=== PATIENT | female | born 2000 | race Caucasian/White ===

== ENCOUNTER 2020-08-16 12:50 | Emergency (ER) | payer OTHER ==
[~2020-08-16 12:50] MED LIST: IMITREX50 MG PO; LEVONOR-ETH ES1 EAC1 PO; NORCO 5-325 TA1 EACH PO; ONDANSETRON ODT8 MG PO; WELLBUTRIN SR150 MG PO
[2020-08-16 13:43] LABS: BASOPHIL 1.3 % (0-2); HCT 44.1 % (37.0-47.0); HGB 14.4 g/dl (12.5-16.0); LYMPHOCYTE 31.7 % (15-48); MCH 30.4 pg (25.0-31.0); MCHC 32.7 g/dL (32.0-36.0); MONOCYTE 4.7 % (0-12); MPV 10.4 fL (6.0-9.5); NEUTROPHIL 61.1 % (41-80); NRBC 0; PLT 280 K/uL (150-400); RBC 4.74 M/uL (4.20-5.40); RDW 12.5 % (11.5-14.0); WBC 6.2 K/uL (4.0-10.5)
[2020-08-16 13:45] LABS: BILIRUBIN NEGATIVE (NEGATIVE); BLOOD NEGATIVE Ery/uL (NEGATIVE); CLARITY CLEAR (CLEAR); COLOR YELLOW (YELLOW); GLUCOSE (U) NORMAL (NORMAL); LEUKOCYTES NEGATIVE Leu/uL (NEGATIVE); NITRITE NEGATIVE (NEGATIVE); PROTEIN NEGATIVE (NEGATIVE); SPECIFIC GRAVITY >=1.030 (1.001-1.030); UROBILINOGEN 0.2 mg/dL (0.2-1.0)
[2020-08-16 13:48] LABS: AMPHETAMINES NEGATIVE (NEGATIVE); BARBITURATES NEGATIVE (NEGATIVE); ECSTASY (MDMA) NEGATIVE (NEGATIVE); MARIJUANA (THC) POSITIVE (NEGATIVE); METHADONE NEGATIVE (NEGATIVE); OPIATES NEGATIVE (NEGATIVE); OXYCODONE NEGATIVE (NEGATIVE)
[2020-08-16 14:13] LABS: ALBUMIN 3.6 g/dL (3.4-5.0); BILIRUBIN - TOTAL 0.3 mg/dL (0.2-1.0); BUN/CREAT RATIO (CALC) 15.2 RATIO; CREATININE 0.66 mg/dL (0.51-0.95); GLOBULIN (CALCULATION) 4.2 g/dL; POTASSIUM 3.6 mmol/L (3.5-5.1); TOTAL PROTEIN 7.8 g/dL (6.4-8.2)
== END 2020-08-16 15:05 | disposition home or self-care (01) ==
LOC: FER 12:50
PROVIDERS: Nurse Practitioner Family
DX: R10.84 Generalized abdominal pain (principal); F19.90 Other psychoactive substance use, unspecified, uncomplicated; R19.7 Diarrhea, unspecified; R63.0 Anorexia; R11.0 Nausea; Z87.19 Personal history of other diseases of the digestive system; Z88.1 Allergy status to other antibiotic agents
CPT/HCPCS: 36415; 80053; 80305; 81003; 82150; 83690; 85025; 99284

== ENCOUNTER 2020-09-29 21:01 | Emergency (ER) | payer OTHER ==
[2020-09-29 21:55] LABS: BASOPHIL 0.6 % (0-2); EOSINOPHIL 2.3 % (0-5); HCT 46.1 % (37.0-47.0); HGB 15.8 g/dl (12.5-16.0); LYMPHOCYTE 18.4 % (15-48); MCH 31.4 pg (25.0-31.0); MCHC 34.3 g/dL (32.0-36.0); MCV 91.7 fL (78.0-100.0); MONOCYTE 10.1 % (0-12); MPV 10.4 fL (6.0-9.5); NEUTROPHIL 68.2 % (41-80); NRBC 0; PLT 297 K/uL (150-400); RBC 5.03 M/uL (4.20-5.40); RDW 12.7 % (11.5-14.0); WBC 8.4 K/uL (4.0-10.5)
[2020-09-29 22:09] LABS: BILIRUBIN 1+ mg/dL (NEGATIVE); BLOOD NEGATIVE Ery/uL (NEGATIVE); COLOR YELLOW (YELLOW); GLUCOSE (U) NORMAL (NORMAL); LEUKOCYTES TRACE Leu/uL (NEGATIVE); NITRITE NEGATIVE (NEGATIVE); PROTEIN TRACE (LOW) mg/dL (NEGATIVE)
[2020-09-29 22:10] LABS: ALBUMIN 3.5 g/dL (3.4-5.0); BILIRUBIN - TOTAL 0.5 mg/dL (0.2-1.0); BUN/CREAT RATIO (CALC) 17.3 RATIO; CREATININE 0.75 mg/dL (0.51-0.95); GLOBULIN (CALCULATION) 3.9 g/dL; POTASSIUM 3.3 mmol/L (3.5-5.1); TOTAL PROTEIN 7.4 g/dL (6.4-8.2)
[2020-09-29 22:10] LABS: CLARITY SLIGHTLY HAZY (CLEAR)
[2020-09-29 22:15] LABS: BACTERIA TRACE; URINARY WBC RARE
[2020-09-29 22:45] LABS: CORONAVIRUS 2019 SARS-COV-2 NEGATIVE (NEGATIVE); INFLUENZA A NAA NEGATIVE (NEGATIVE)
== END 2020-09-30 03:10 | disposition home or self-care (01) ==
LOC: FER 21:01
PROVIDERS: Emergency Medicine
DX: R11.2 Nausea with vomiting, unspecified (principal); E86.0 Dehydration; R79.89 Other specified abnormal findings of blood chemistry; E87.6 Hypokalemia; R19.7 Diarrhea, unspecified; Z88.1 Allergy status to other antibiotic agents; Z20.822 Contact with and (suspected) exposure to COVID-19
CPT/HCPCS: 36415; 80053; 81001; 82150; 83690; 85025; J2405; J7030; U0002

== ENCOUNTER 2021-11-14 10:22 | Emergency (ER) | payer OTHER ==
[2021-11-14 13:05] LABS: BILIRUBIN NEGATIVE (NEGATIVE); BLOOD NEGATIVE Ery/uL (NEGATIVE); CLARITY CLEAR (CLEAR); COLOR YELLOW (YELLOW); GLUCOSE (U) NORMAL (NORMAL); LEUKOCYTES NEGATIVE Leu/uL (NEGATIVE); NITRITE NEGATIVE (NEGATIVE); PROTEIN NEGATIVE (NEGATIVE); SPECIFIC GRAVITY >=1.030 (1.001-1.030); UROBILINOGEN 0.2 mg/dL (0.2-1.0)
[2021-11-14 13:20] LABS: BASOPHIL 0.9 % (0-2); EOSINOPHIL 1.5 % (0-5); HCT 40.3 % (37.0-47.0); HGB 13.5 g/dl (12.5-16.0); LYMPHOCYTE 40.5 % (15-48); MCH 30.3 pg (25.0-31.0); MCHC 33.5 g/dL (32.0-36.0); MCV 90.4 fL (78.0-100.0); MONOCYTE 5.7 % (0-12); MPV 10.7 fL (6.0-9.5); NEUTROPHIL 51.4 % (41-80); NRBC 0; PLT 224 K/uL (150-400); RBC 4.46 M/uL (4.20-5.40); RDW 13.1 % (11.5-14.0); WBC 5.8 K/uL (4.0-10.5)
[2021-11-14 13:35] LABS: BUN/CREAT RATIO (CALC) 13.9 RATIO; CREATININE 0.79 mg/dL (0.51-0.95); POTASSIUM 3.7 mmol/L (3.5-5.1)
== END 2021-11-14 14:21 | disposition home or self-care (01) ==
LOC: FER 10:22
PROVIDERS: Nurse Practitioner Family
DX: E86.0 Dehydration (principal); Z88.1 Allergy status to other antibiotic agents; Z28.310 Unvaccinated for COVID-19
CPT/HCPCS: 36415; 80048; 81003; 85025; J7030